=== PATIENT | female | born 1965 | race Two or more races ===

== ENCOUNTER 2018-01-19 20:10 | Emergency (ER) | payer OTHER ==
[2018-01-19 20:16] VITALS: BP 139/79; PULSE 76; TEMP 98; BMI 27.4
--- NOTE | 2018-01-19 20:20 | PDOC ---
History of Present Illness - General History Source: Patient Exam Limitations: No Limitations - History of Present Illness Initial Comments: The patient is a 52 year old female with no known past medical history is brought the ED accompanied by her with right ankle swelling and right leg pain. The patient report she twisted her ankle January 08. She denied immediate care due to going out of state for a vacation. The patient reports she flew to and back form the vacation. The patient reports she noticed pain on the right leg for the past 3 days. The patient denies any history of blood clots. The patient denies chest pain, shortness of breath, headache and dizziness. Denies fever, chills, nausea, vomit, diarrhea and constipation. Denies dysuria, frequency, urgency and hematuria. Allergies: NKA Past surgical history: None reported Social history: No reported 01/19/18 21:04 <Shadia White - Last Filed: 01/19/18 21:04> - General History Source: Patient Exam Limitations: No Limitations - History of Present Illness Initial Comments: 01/19/18 21:50 A portion of this note was documented by scribe services under my direction. I have reviewed the details of the note, within reason, and agree with the documentation. The case summary and management plan written by me. Assessment and plan: This is a 52-year-old female who comes in complaining of right ankle pain patient injured her ankle approximately one and half weeks ago. Patient is been walking on it since and now comes in complaining of foot and ankle pain with swelling Patient had an x-ray that was negative for any fracture or acute pathology Patient had ultrasound Doppler to rule out DVT as she had recently, vacation and had flown on a plane. Patient told to rest, elevate and wear a walking cast or Guillermo wrap until the swelling resolves. <Jordi Fuentes I - Last Filed: 01/19/18 21:53> - General Chief Complaint: Injury Stated Complaint: R ANKLE SWELLING/PAIN Time Seen by Provider: 01/19/18 20:19 Past History <Shadia White - Last Filed: 01/19/18 21:04> - Past Medical History COPD: No - Suicide/Smoking/Psychosocial Hx Smoking History: Never smoked Have you smoked in the past 12 months: No Number of Cigarettes Smoked Daily: 0 Information on smoking cessation initiated: No Hx Alcohol Use: No Drug/Substance Use Hx: No Substance Use Type: None <Jordi Fuentes I - Last Filed: 01/19/18 21:53> - Past Medical History Allergies/Adverse Reactions: Allergies Allergy/AdvReac Type Severity Reaction Status Date / Time No Known Allergies Allergy Unverified 01/19/18 20:15 Home Medications: Ambulatory Orders NK [No Known Home Medication] 01/19/18 Review of Systems - Review of Systems Able to Perform ROS?: Yes Comments:: General: No fevers or chills, no weakness, no weight loss HEENT: No change in vision. No sore throat,. No ear pain CardioVascular: No chest pain or shortness of breath Respiratory:No cough, or wheezing. Gastrointestinal: no nausea, vomiting, diarrhea or constipation, No rectal bleeding Genitourinary: No dysuria, hematuria, or frequency Musculoskeletal: (+) Right ankle swelling and right leg pain. Neurologic: No headache, vertigo, dizziness or loss of consciousness Psychiatric: nor depression Skin: No rashes or easy bruising Endocrine: no increased thirst or abnormal weight change Allergic: no skin or latex allergy All other systems reviewed and normal 01/19/18 21:10 <Shadia White - Last Filed: 01/19/18 21:04> *Physical Exam - Vital Signs Last Vital Signs Temp Pulse Resp BP Pulse Ox 98 F 76 14 139/79 99 01/19/18 20:13 01/19/18 20:13 01/19/18 20:13 01/19/18 20:13 01/19/18 20:13 - Physical Exam Comments: GENERAL: The patient is awake, alert, and fully oriented, in no acute distress. HEAD: Normal with no signs of trauma. EYES: Pupils equal, round and reactive to light, extraocular movements intact, sclera anicteric, conjunctiva clear. EXTREMITIES: (+) Right lower extremities, Tenderness along palpation of the anterior thigh. ANKLES: Right ankle: no edema appreciated of the leg above the ankle. Remarkable swelling with tenderness to the lateral portion of the ankle. Normal range of motion, no edema. NEUROLOGICAL: Normal speech, normal gait. PSYCH: Normal mood, normal affect. SKIN: Warm, Dry, normal turgor, no rashes or lesions noted. 01/19/18 21:09 <Shadia White - Last Filed: 01/19/18 21:04> - Vital Signs Last Vital Signs Temp Pulse Resp BP Pulse Ox 98 F 76 14 139/79 99 01/19/18 20:13 01/19/18 20:13 01/19/18 20:13 01/19/18 20:13 01/19/18 20:13 <Jordi Fuentes I - Last Filed: 01/19/18 21:53> *DC/Admit/Observation/Transfer - Attestations Scribe Attestion: 01/19/18 21:10 Documentation prepared by Shadia White, acting as medical numerical control operator for Jordi Fuentes MD. <Shadia White - Last Filed: 01/19/18 21:04> <Jordi Fuentes I - Last Filed: 01/19/18 21:53> Diagnosis at time of Disposition: Right ankle sprain Qualifiers: Encounter type: initial encounter Involved ligament of ankle: unspecified ligament Qualified Code(s): S93.401A - Sprain of unspecified ligament of right ankle, initial encounter - Discharge Dispostion Condition at time of disposition: Good - Patient Instructions Additional Instructions: Tylenol or Motrin as needed for pain Rest and elevate the ankle, where either Guillermo wrap or walking cast. Return to the emergency department immediately with ANY new, persistent or worsening symptoms. Continue any medications as previously prescribed by your physician. You should follow up with your primary doctor as soon as possible regarding today's emergency department visit. . Please make sure your doctor reviews the results of your emergency evaluation. Thank you for coming to the Emergency Department today for your care. It was a pleasure to see you today. Please note that your evaluation is INCOMPLETE until you follow-up with your doctor.
== END 2018-01-19 22:01 | disposition home or self-care (01) ==
LOC: FER 20:10
DX: S93.401A Sprain of unspecified ligament of right ankle, initial encounter (principal); X58.XXXA Exposure to other specified factors, initial encounter; Y93.89 Activity, other specified; Y92.9 Unspecified place or not applicable
CPT/HCPCS: 73610-TC-RT-FY; 93971-TC; 99281-25

== ENCOUNTER 2018-09-06 17:00 | Emergency (ER) | payer OTHER ==
[2018-09-06 17:04] VITALS: BP 142/79; PULSE 71; TEMP 97.9; BMI 28.3
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
[2018-09-06] MEDS ORDERED: KETOROLAC TROMETHAMINE 60 MG/2 ML VIAL IM ONE (18:13)
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
[2018-09-06] MEDS ORDERED: KETOROLAC TROMETHAMINE 60 MG/2 ML VIAL ONE (18:18)
== END 2018-09-06 18:40 | disposition home or self-care (01) ==
LOC: FER 17:00
PROC: 3E0233Z Introduction of Anti-inflammatory into Muscle, Percutaneous Approach (ICD-10-PCS; principal; 2018-09-06)
DX: M25.511 Pain in right shoulder (principal); V43.62XA Car passenger injured in collision with other type car in traffic accident, initial encounter; Y93.89 Activity, other specified; Y92.410 Unspecified street and highway as the place of occurrence of the external cause
CPT/HCPCS: 99282-25

== ENCOUNTER 2018-09-16 13:54 | Emergency (ER) | payer OTHER ==
[2018-09-16 14:02] VITALS: BP 123/79; PULSE 74; TEMP 97.6; BMI 28.3
[2018-09-16] MEDS ORDERED: LIDOCAINE 5% TOPICAL PATCH TP ONE (14:33)
[2018-09-16] MEDS ORDERED: CYCLOBENZAPRINE HCL 5 MG TABLET PO ONE (14:33)
[2018-09-16] MEDS ORDERED: ACETAMINOPHEN 325 MG TABLET (FP) PO ONE (14:33)
[2018-09-16] MEDS ORDERED: KETOROLAC TROMETHAMINE 30 MG/1 ML VIAL IM ONE (14:33)
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
[2018-09-16] MEDS ORDERED: ACETAMINOPHEN 325 MG TABLET (FP) ONE (14:43)
[2018-09-16] MEDS ORDERED: CYCLOBENZAPRINE HCL 10 MG TABLET (FP) ONE (15:04)
[2018-09-16] MEDS ORDERED: KETOROLAC TROMETHAMINE 30 MG/1 ML VIAL ONE (15:04)
[2018-09-16] MEDS ORDERED: LIDOCAINE 5% TOPICAL PATCH ONE (15:04)
[2018-09-16] MEDS ORDERED: LIDOCAINE PATCH REMOVAL MC SCH (22:00)
== END 2018-09-16 15:38 | disposition home or self-care (01) ==
LOC: FER 13:54
PROC: 3E0233Z Introduction of Anti-inflammatory into Muscle, Percutaneous Approach (ICD-10-PCS; principal; 2018-09-16)
DX: S39.012D Strain of muscle, fascia and tendon of lower back, subsequent encounter (principal); S16.1XXD Strain of muscle, fascia and tendon at neck level, subsequent encounter
CPT/HCPCS: 72050-TC-FY; 72070-TC-FY; 72100-TC-FY; 99282-25

== ENCOUNTER 2021-08-11 05:10 | Day surgery (SDC) | payer OTHER ==
[2021-08-06 13:37] VITALS: BMI 28.1
[2021-08-11 11:27] VITALS: TEMP 97.7
[2021-08-11 11:55] VITALS: BP 128/73; PULSE 56
== END 2021-08-11 12:23 | disposition home or self-care (01) ==
LOC: JASU-ENDO 05:10
PROVIDERS: ATTEND Internal Medicine Gastroenterology
PROC: 0DBK8ZX Excision of Ascending Colon, Via Natural or Artificial Opening Endoscopic, Diagnostic (ICD-10-PCS; 2021-08-11)
PROC: 0DBL8ZX Excision of Transverse Colon, Via Natural or Artificial Opening Endoscopic, Diagnostic (ICD-10-PCS; principal; 2021-08-11 11:00)
DX: Z12.11 Encounter for screening for malignant neoplasm of colon (principal); Z86.010 Personal history of colon polyps; D12.2 Benign neoplasm of ascending colon; D12.3 Benign neoplasm of transverse colon; K64.8 Other hemorrhoids
CPT/HCPCS: 88305-TC